=== PATIENT | male | born 1970 ===

== ENCOUNTER 2018-04-15 05:40 | Emergency (ER) | payer MEDICAID ==
[~2018-04-15] VITALS: Ht 188 cm; Wt 91.6 kg
[2018-04-15] MEDS ORDERED: NALOXONE 0.4 MG/ML, 1ML ONE (05:48)
--- NOTE | 2018-04-15 05:52 | NUR ---
MD AT BEDSIDE, 0.4MG NARCAN GIVEN PER MD VERBAL ORDER FOR HYPOXIA AND LOW RR. AWAITING ORDER FOR DOCUMENTATION.
[2018-04-15] MEDS ORDERED: NALOXONE 1 MG/ML, 2ML ONE (05:56)
[2018-04-15] MEDS ORDERED: NALOXONE 0.4 MG/ML, 1ML IVPush ONE (06:00)
[2018-04-15] MEDS ORDERED: NALOXONE 1 MG/ML, 2ML IVPush ONE (06:00)
--- NOTE | 2018-04-15 06:18 | NUR ---
PT HAD NO RESPONSE TO NARCAN. THIS RN TO PT WITH CT. UPON COMPLETING CT PT NOW ABLE TO VERBALIZE CITY, NAME, YEAR, AND PRESIDENT. PT REMAINS DROWY. Addendum: 04/15/18 at 0620 by [email or web address] CORRECTION:THIS RN TO CT WITH PT'
[2018-04-15 06:31] VITALS: BP 138/84
[2018-04-15 06:42] LABS: BASOPHILS # (AUTO) 0.02 x10^3/uL (0-0.1); BASOPHILS % (AUTO) 0 % (0-1); EOSINOPHILS # (AUTO) 0.04 x10^3/uL (0-0.4); EOSINOPHILS % (AUTO) 1 % (1-7); LYMPHOCYTES # (AUTO) 1.09 x10^3/uL (1-3.4); LYMPHOCYTES % (AUTO) 18 % (22-44); MD NO; MEAN CORPUSCULAR HEMOGLOBIN 33.8 pg (27.5-34.5); MEAN CORPUSCULAR HGB CONC 34.5 g/dL (33.2-36.2); MEAN PLATELET VOLUME 7.3 fL (7.4-10.4); MONOCYTES # (AUTO) 0.39 x10^3/uL (0.2-0.8); MONOCYTES % (AUTO) 7 % (2-9); NEUTROPHILS # (AUTO) 4.45 x10^3/uL (1.8-6.8); NEUTROPHILS % (AUTO) 74 % (42-75); PLATELET COUNT 227 x10^3/uL (130-400); RED CELL DISTRIBUTION WIDTH 15.1 % (9.4-14.8)
--- NOTE | 2018-04-15 06:49 | NUR ---
REC BS REPORT PT SLEEPING AT THIS TIME NADA
[2018-04-15 06:51] LABS: ALANINE AMINOTRANSFERASE 46 U/L (12-78); ALBUMIN 3.7 g/dL (3.4-5.0); ANION GAP 7 mmol/L (5-15); CALCIUM 7.6 mg/dL (8.5-10.1); CHLORIDE 111 mmol/L (98-107); CREATININE 0.72 mg/dL (0.7-1.3); SALICYLATE LEVEL 4.1 mg/dL (2.8-20.0)
[2018-04-15 06:53] LABS: ALKALINE PHOSPHATASE 69 U/L (45-117); TOTAL PROTEIN 7.8 g/dL (6.4-8.2)
[2018-04-15 06:55] LABS: ACETAMINOPHEN < 2 mcg/mL (10-30); BILIRUBIN,TOTAL < 0.1 mg/dL (0.2-1.0)
--- NOTE | 2018-04-15 07:55 | NUR ---
REMAISN SLEEPING AT THIS TIME VITAL IN NORMAL LIMITS NADN
--- NOTE | 2018-04-15 10:11 | NUR ---
STILL UNABLE TO AMBULATE
== END 2018-04-15 13:13 | disposition home or self-care (01) ==
LOC: EDBD 05:40 → MERGE 05:40 → ED 12:41
DX: F10.220 Alcohol dependence with intoxication, uncomplicated (principal)
CPT/HCPCS: 36415; 70450; 71045; 80053; 80307; 80329; 85025; 93005; 96374; 99284; J2310; G0480

== ENCOUNTER 2020-02-28 21:10 | Emergency (ER) | payer MEDICAID ==
[~2020-02-28] VITALS: Ht 188 cm; Wt 82.0 kg
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
--- NOTE | 2020-02-28 21:59 | NUR ---
RECEIVED REPORT FROM MARIO HARDIN TO ASSUME CARE OF PT. AT THIS TIME.
--- NOTE | 2020-02-28 22:04 | NUR ---
PT. RESTING ON GURNEY WITH EYES CLOSED. ALL SAFETY MEASURES OBSERVED. SPO2 AND B/P MONITORS IN PLACE.
--- NOTE | 2020-02-28 22:07 | NUR ---
REPORT GIVEN TO NICK MARTIN
--- NOTE | 2020-02-28 22:41 | NUR ---
ATTEMPTED TO AMBULATE PT. PT. UNSTEADY AND UNABLE TO AMBULATE AT THIS TIME.
--- NOTE | 2020-02-28 23:32 | NUR ---
PT. RESTING ON GURNEY IN SEMI-SEATED POSTION. SIDE RAILS UP. ALL SAFETY MEASURES MAINTAINED. MONITORS REMAIN IN PLACE.
--- NOTE | 2020-02-29 00:23 | NUR ---
PT RESTING ON VILMA VSS. NO ACUTE DISTRESS NOTED. WILL CONT TO MONITOR.
--- NOTE | 2020-02-29 01:42 | NUR ---
Report from MARIO Patel. [facility] care.
--- NOTE | 2020-02-29 01:45 | NUR ---
Pt sleeping, breathing non-labored, equal chest rise and fall.
--- NOTE | 2020-02-29 02:41 | NUR ---
Pt sleeping. Woke pt up and provided water and PB&J sandwich. Pt sitting up and eating sandwich.
[2020-02-29 02:45] VITALS: BP 96/64
--- NOTE | 2020-02-29 02:56 | NUR ---
Pt ate sandwich, drank water, dressed self, ambulating to bathroom- steady equal gait.
== END 2020-02-29 02:59 | disposition home or self-care (01) ==
LOC: ED 21:58
DX: F10.120 Alcohol abuse with intoxication, uncomplicated (principal); M79.672 Pain in left foot; M79.671 Pain in right foot; F17.200 Nicotine dependence, unspecified, uncomplicated; Z72.9 Problem related to lifestyle, unspecified; Y90.0 Blood alcohol level of less than 20 mg/100 ml
CPT/HCPCS: 99283

== ENCOUNTER 2020-03-05 19:48 | Emergency (ER) | payer MEDICAID ==
[~2020-03-05] VITALS: Ht 177.8 cm; Wt 80.0 kg
[2020-03-05 21:40] VITALS: BP 100/56
== END 2020-03-05 21:48 | disposition home or self-care (01) ==
LOC: ED 21:46
DX: F10.120 Alcohol abuse with intoxication, uncomplicated (principal); Z72.9 Problem related to lifestyle, unspecified; Y90.0 Blood alcohol level of less than 20 mg/100 ml
CPT/HCPCS: 99283

== ENCOUNTER 2020-04-20 07:40 | Emergency (ER) | payer MEDICAID ==
[~2020-04-20] VITALS: Ht 190.5 cm; Wt 83.2 kg
[2020-04-20] MEDS: FLUORESCEIN/BENOXINATE 5 ML DROPS OP ONE ×2 (08:12→08:13)
--- NOTE | 2020-04-20 10:17 | NUR ---
Pt sitting in chair, EVINN, denies needs. Meal tray ordered for pt.
--- NOTE | 2020-04-20 10:38 | NUR ---
Pt given meal tray, denies other needs.
--- NOTE | 2020-04-20 11:36 | NUR ---
Pt resting in exam chair with eyes closed, resp even and unlabored, NADN.
[2020-04-20] MEDS ORDERED: HYDROcodone/APAP 5/325 TABLET PO STA (12:39)
[2020-04-20] MEDS ORDERED: HYDROcodone/APAP 5/325 TABLET ONE (12:40)
--- NOTE | 2020-04-20 12:51 | NUR ---
task rn: medicated per lita.Dr. hill at bedside
--- NOTE | 2020-04-20 13:27 | NUR ---
Pt resting in exam chair with eyes closed, resp even and unlabored, NADN.
--- NOTE | 2020-04-20 13:53 | NUR ---
Discussed POC with pt to transfer him to [facility]. Pt agreeable to POC, reports pain improved after medications given.
[2020-04-20] MEDS ORDERED: VANCOMYCIN 500 MG ONE (14:11)
[2020-04-20] MEDS ORDERED: GENTAMICIN OPHTH SOLN 0.3%,5ML ONE (14:11)
[2020-04-20] MEDS ORDERED: ARTIFICIAL TEARS 15 DROP/ML BOTTLE ONE (14:11)
[2020-04-20] MEDS ORDERED: GENTAMICIN 80 MG/2 ML ONE (14:11)
--- NOTE | 2020-04-20 14:41 | NUR ---
TP RN: LAY[facility] WHITLEY CALLED. OPTHALMOLOGY DR JAMES HAS ACCEPTED THE PATIENT. PT IS GOING TO BE SENT ER TO ER. WAITING ON TRANSFER CENTER TO CALL BACK WITH A ER DOCTOR TO DOCTOR REPORT.
[2020-04-20 14:52] VITALS: BP 137/70
--- NOTE | 2020-04-20 14:53 | NUR ---
Pt resting in bed, requesting food. Meal tray ordered for pt.
[2020-04-20] MEDS: GENTAMICIN RIGHTEYE SCH ×4 (15:14→18:16)
[2020-04-20] MEDS: VANCOMYCIN RIGHTEYE SCH ×4 (15:43→18:52)
--- NOTE | 2020-04-20 15:44 | NUR ---
Meal tray given to pt. Second abx gtt instilled per APR.
--- NOTE | 2020-04-20 15:51 | NUR ---
Report called to Vani MARTIN at [facility].
--- NOTE | 2020-04-20 17:40 | NUR ---
Pt continues tolerating eye drops well, resting in exam chair, denies needs.
--- NOTE | 2020-04-20 18:58 | NUR ---
JOAN RN: [facility]IT[facility] CALLED. THEY ARE AWARE PT IS ON HIS WAY.
== END 2020-04-20 19:00 | disposition short-term general hospital (02) ==
LOC: ED 12:46
DX: H16.042 Marginal corneal ulcer, left eye (principal); H44.002 Unspecified purulent endophthalmitis, left eye; H16.032 Corneal ulcer with hypopyon, left eye
CPT/HCPCS: 71045; 99285; J1580; J3370